=== PATIENT | female | born 1955 | race Asian ===

== ENCOUNTER 2020-09-25 08:35 | Inpatient (IN) | payer OTHER | END 2020-09-30 15:28 | disposition still patient (30) | LOC: PAVC 08:35 | PROVIDERS: ADMIT Internal Medicine; ATTEND Internal Medicine ==

== ENCOUNTER 2020-09-26 07:35 | Outpatient (CLI) | payer OTHER ==
[2020-09-26 08:06] LABS: PLATELET COUNT 304 K/uL (152-353)
[2020-09-26 08:30] LABS: POTASSIUM 3.8 mmol/L (3.6-5.2)
== END 2020-09-26 22:41 | disposition home or self-care (01) ==
LOC: LAB 07:35
PROVIDERS: ATTEND Internal Medicine
DX: N18.9 Chronic kidney disease, unspecified (principal); E03.8 Other specified hypothyroidism; E11.9 Type 2 diabetes mellitus without complications
CPT/HCPCS: 80053; 80061; 82306; 82728; 83036; 83540; 84443; 85027; 87081

== ENCOUNTER 2020-09-30 15:30 | Inpatient (IN) | payer OTHER | END 2020-10-30 08:00 | disposition still patient (30) | LOC: PAVC 15:30 → PAVA 10-13 15:07 | PROVIDERS: ADMIT Internal Medicine; ATTEND Internal Medicine ==

== ENCOUNTER 2020-10-30 09:02 | Inpatient (IN) | payer OTHER | END 2020-11-30 08:00 | disposition still patient (30) | LOC: PAVA 09:02 | PROVIDERS: ADMIT Internal Medicine; ATTEND Internal Medicine ==

== ENCOUNTER 2020-11-30 09:00 | Inpatient (IN) | payer OTHER | END 2020-12-31 09:06 | disposition still patient (30) | LOC: PAVA 09:00 | PROVIDERS: ADMIT Internal Medicine; ATTEND Internal Medicine ==

== ENCOUNTER 2020-12-31 08:38 | Outpatient (CLI) | payer OTHER | END 2020-12-31 23:00 | disposition home or self-care (01) | LOC: LAB 08:38 | PROVIDERS: ATTEND Internal Medicine | DX: E11.9 Type 2 diabetes mellitus without complications (principal) | CPT/HCPCS: 82728; 83036 ==

== ENCOUNTER 2020-12-31 09:11 | Inpatient (IN) | payer OTHER | END 2021-01-30 08:09 | disposition still patient (30) | LOC: PAVA 09:11 | PROVIDERS: ADMIT Internal Medicine; ATTEND Internal Medicine ==

== ENCOUNTER 2021-02-11 18:38 | Observation (INO) | payer OTHER ==
[~2021-02-11] VITALS: Ht 177.8 cm; Wt 121.6 kg
[2021-02-11] VITALS (10 sets, daily range): BP systolic 106–196; BP diastolic 55–92; TEMP 98.1–99.1; Ht 177.8 cm; Wt 121.6 kg
[2021-02-11 19:33] LABS: PLATELET COUNT 407 K/uL (152-353)
[2021-02-11 19:43] LABS: POTASSIUM 4.6 mmol/L (3.6-5.2); SODIUM 138 mmol/L (136-145)
[2021-02-12] MEDS ORDERED: ALLOPURINOL PO (01:38)
[2021-02-12] MEDS ORDERED: ANORO ELLIPTA 61 AER PO (01:47)
[2021-02-12] MEDS ORDERED: [UNRECOGNIZED DRUG - OTHER] PO (01:53)
[2021-02-12] MEDS ORDERED: LIPITOR20 MG PO (01:56)
[2021-02-12 02:12] LABS: PLATELET COUNT 325 K/uL (152-353)
[2021-02-12 02:21] LABS: POTASSIUM 4.6 mmol/L (3.6-5.2)
[2021-02-12] MEDS ORDERED: DOCU100C10 PO (02:37)
[2021-02-12] MEDS ORDERED: METF100038 PO (02:38)
[2021-02-12] MEDS ORDERED: IRON HIGH-POTE325 MG PO (02:39)
[2021-02-12] MEDS ORDERED: MELOXICAM7.5 MG PO (02:41)
[2021-02-12] MEDS ORDERED: HYDRALAZINE25 MG PO (02:42)
[2021-02-12] MEDS ORDERED: LAXATIVE RE (02:45)
[2021-02-12 04:00] VITALS: BP 166/65; TEMP 99
[2021-02-12 08:00] VITALS: BP 144/69; TEMP 99.3
[2021-02-12 12:00] VITALS: BP 154/63; TEMP 99
[2021-02-12 16:00] VITALS: BP 150/48; TEMP 99.2
[2021-02-12 20:00] VITALS: BP 136/77; TEMP 98.6
[2021-02-13 00:05] VITALS: BP 99/66; TEMP 99.4
[2021-02-13 03:37] VITALS: BP 112/70; TEMP 99.4
[2021-02-13 05:37] LABS: PLATELET COUNT 332 K/uL (152-353)
[2021-02-13 05:49] LABS: POTASSIUM 4.1 mmol/L (3.6-5.2)
[2021-02-13 08:00] VITALS: BP 135/63; TEMP 98.4
[2021-02-13] MEDS ORDERED: LEVOFLOXACIN500 MG PO (10:55)
== END 2021-02-13 14:20 ==
LOC: ED 18:38 → MED/SURG 22:00
PROVIDERS: Emergency Medicine Emergency Medical Services; ADMIT Internal Medicine; ATTEND Internal Medicine
DX: R07.89 Other chest pain (principal); E11.9 Type 2 diabetes mellitus without complications; N39.0 Urinary tract infection, site not specified; M10.9 Gout, unspecified; I25.10 Atherosclerotic heart disease of native coronary artery without angina pectoris; D50.8 Other iron deficiency anemias; J44.9 Chronic obstructive pulmonary disease, unspecified; I11.0 Hypertensive heart disease with heart failure; I50.9 Heart failure, unspecified; E78.49 Other hyperlipidemia; Z86.73 Personal history of transient ischemic attack (TIA), and cerebral infarction without residual deficits
CPT/HCPCS: 36415; 51702; 80048; 80053; 81000; 83880; 84484; 85027; 85610; 87040; 87077; 87086; 87088; 87186; 87635; 93005; 96365; 96367; 96372; 99220; 99284; G0378; J0696; J1650; J1940; U0003

== ENCOUNTER 2021-04-01 08:44 | Inpatient (IN) | payer OTHER ==
[~2021-04-01 08:44] MED LIST: ALLOPURINOL PO; ANORO ELLIPTA 61 AER PO; DOCU100C10 PO; HYDRALAZINE25 MG PO; IRON HIGH-POTE325 MG PO; LAXATIVE RE; LEVOFLOXACIN500 MG PO; LIPITOR20 MG PO; MELOXICAM7.5 MG PO; METF100038 PO; [UNRECOGNIZED DRUG - OTHER] PO
== END 2021-05-02 07:54 | disposition still patient (30) ==
LOC: PAVA 08:44
PROVIDERS: ADMIT Internal Medicine; ATTEND Internal Medicine

== ENCOUNTER 2021-04-02 04:57 | Outpatient (CLI) | payer OTHER | END 2021-04-02 18:55 | disposition home or self-care (01) | LOC: LAB 04:57 | PROVIDERS: ATTEND Internal Medicine | DX: E11.9 Type 2 diabetes mellitus without complications (principal); E03.8 Other specified hypothyroidism | CPT/HCPCS: 36415; 83036; 84443 ==

== ENCOUNTER 2021-05-02 07:59 | Inpatient (IN) | payer OTHER | END 2021-06-02 08:39 | disposition still patient (30) | LOC: PAVA 07:59 | PROVIDERS: ADMIT Internal Medicine; ATTEND Internal Medicine ==

== ENCOUNTER 2021-06-02 08:55 | Inpatient (IN) | payer OTHER | END 2021-06-30 08:51 | disposition still patient (30) | LOC: PAVA 08:55 | PROVIDERS: ADMIT Internal Medicine; ATTEND Internal Medicine ==

== ENCOUNTER 2021-06-30 09:32 | Inpatient (IN) | payer OTHER | END 2021-07-31 08:08 | disposition still patient (30) | LOC: PAVA 09:32 | PROVIDERS: ADMIT Internal Medicine; ATTEND Internal Medicine ==

== ENCOUNTER 2021-07-01 07:26 | Outpatient (CLI) | payer OTHER | END 2021-07-01 19:21 | disposition home or self-care (01) | LOC: LAB 07:26 | PROVIDERS: ATTEND Internal Medicine | DX: E11.9 Type 2 diabetes mellitus without complications (principal) | CPT/HCPCS: 36415; 83036 ==

== ENCOUNTER 2021-07-31 08:21 | Inpatient (IN) | payer OTHER ==
[~2021-07-31 08:21] MED LIST changes: +ASPIRIN/ENTERIC81 MG PO; -[UNRECOGNIZED DRUG - OTHER] PO
[2021-08-25] MEDS ORDERED: ANORO ELLIPTA 61 AER IN (03:46)
[2021-08-25] MEDS ORDERED: LIPITOR20 MG PO (03:53)
[2021-08-25] MEDS ORDERED: AMLODIPINE BESYLATE PO (03:53)
[2021-08-25] MEDS ORDERED: EUTHYROX175 MCG PO (03:55)
[2021-08-25] MEDS ORDERED: TYLENOL325 MG PO (04:13)
[2021-08-25] MEDS ORDERED: VITAMIN D1000 UNI1 PO (04:14)
[2021-08-25] MEDS ORDERED: ALLERCLEAR10 MG PO (04:15)
== END 2021-08-30 10:47 | disposition still patient (30) ==
LOC: PAVA 08:21
PROVIDERS: ADMIT Internal Medicine; ATTEND Internal Medicine

== ENCOUNTER 2021-08-30 03:17 | Inpatient (IN) | payer OTHER ==
[~2021-08-30 03:17] MED LIST changes: +ALLERCLEAR10 MG PO; +AMLODIPINE BESYLATE PO; +ANORO ELLIPTA 61 AER IN; +EUTHYROX175 MCG PO; +TYLENOL325 MG PO; +VITAMIN D1000 UNI1 PO
== END 2021-09-30 09:22 | disposition still patient (30) ==
LOC: PAVA 03:17
PROVIDERS: ADMIT Internal Medicine; ATTEND Internal Medicine

== ENCOUNTER 2021-09-10 14:38 | Outpatient (CLI) | payer OTHER | END 2021-09-10 19:05 | disposition home or self-care (01) | LOC: RAD 14:38 | PROVIDERS: ATTEND Internal Medicine | DX: M25.512 Pain in left shoulder (principal) ==

== ENCOUNTER 2021-09-30 07:34 | Outpatient (CLI) | payer OTHER ==
[2021-09-30 08:18] LABS: PLATELET COUNT 302 K/uL (152-353)
[2021-09-30 08:34] LABS: POTASSIUM 4.3 mmol/L (3.6-5.2)
== END 2021-09-30 19:07 | disposition home or self-care (01) ==
LOC: LAB 07:34
PROVIDERS: ATTEND Internal Medicine
DX: E03.8 Other specified hypothyroidism (principal); I50.32 Chronic diastolic (congestive) heart failure; E11.9 Type 2 diabetes mellitus without complications; I11.0 Hypertensive heart disease with heart failure
CPT/HCPCS: 80053; 80061; 83036; 84443; 85027

== ENCOUNTER 2021-09-30 10:44 | Inpatient (IN) | payer OTHER | END 2021-10-30 09:13 | disposition still patient (30) | LOC: PAVA 10:44 → PAVC 10-02 15:40 | PROVIDERS: ADMIT Internal Medicine; ATTEND Internal Medicine ==

== ENCOUNTER 2021-10-01 16:31 | Outpatient (CLI) | payer OTHER | END 2021-10-01 19:01 | disposition home or self-care (01) | LOC: LAB 16:31 | PROVIDERS: ATTEND Internal Medicine | DX: R79.89 Other specified abnormal findings of blood chemistry (principal) | CPT/HCPCS: 82728; 83540 ==

== ENCOUNTER 2021-10-06 13:16 | Outpatient (CLI) | payer OTHER | END 2021-10-06 18:53 | disposition home or self-care (01) | LOC: MAMMO 13:16 | PROVIDERS: ATTEND Internal Medicine | DX: Z12.31 Encounter for screening mammogram for malignant neoplasm of breast (principal) ==

== ENCOUNTER 2021-10-30 12:39 | Inpatient (IN) | payer OTHER | END 2021-11-30 09:08 | disposition still patient (30) | LOC: PAVC 12:39 | PROVIDERS: ADMIT Internal Medicine; ATTEND Internal Medicine ==

== ENCOUNTER 2021-11-30 09:46 | Inpatient (IN) | payer OTHER | END 2021-12-31 09:11 | disposition still patient (30) | LOC: PAVC 09:46 | PROVIDERS: ADMIT Internal Medicine; ATTEND Internal Medicine ==

== ENCOUNTER 2021-12-31 08:48 | Outpatient (CLI) | payer OTHER | END 2021-12-31 19:27 | disposition home or self-care (01) | LOC: LAB 08:48 | PROVIDERS: ATTEND Family Medicine | DX: E11.9 Type 2 diabetes mellitus without complications (principal) | CPT/HCPCS: 83036 ==

== ENCOUNTER 2021-12-31 14:30 | Inpatient (IN) | payer OTHER | END 2022-01-30 10:35 | disposition still patient (30) | LOC: PAVC 14:30 | PROVIDERS: ADMIT Family Medicine; ATTEND Family Medicine ==

== ENCOUNTER 2022-01-30 13:46 | Inpatient (IN) | payer OTHER | END 2022-03-02 12:11 | disposition still patient (30) | LOC: PAVC 13:46 | PROVIDERS: ADMIT Family Medicine; ATTEND Family Medicine ==

== ENCOUNTER 2022-02-10 14:23 | Outpatient (CLI) | payer OTHER ==
[2022-02-10 15:26] LABS: PLATELET COUNT 372 K/uL (152-353)
== END 2022-02-10 19:35 | disposition home or self-care (01) ==
LOC: LAB 14:23
PROVIDERS: ATTEND Family Medicine
DX: R09.89 Other specified symptoms and signs involving the circulatory and respiratory systems (principal); R05.9 Cough, unspecified
CPT/HCPCS: 85027; 87502

== ENCOUNTER 2022-03-02 12:31 | Inpatient (IN) | payer OTHER | END 2022-04-01 15:17 | disposition still patient (30) | LOC: PAVC 12:31 | PROVIDERS: ADMIT Family Medicine; ATTEND Family Medicine ==

== ENCOUNTER → 2022-03-02 | Outpatient (CLI) | payer OTHER | LOC: LAB 07:20 | PROVIDERS: ATTEND Family Medicine | DX: E03.8 Other specified hypothyroidism (principal) | CPT/HCPCS: 84443; 84480 ==

== ENCOUNTER 2022-04-01 08:01 | Outpatient (CLI) | payer OTHER ==
[2022-04-01 09:20] LABS: PLATELET COUNT 343 K/uL (152-353)
[2022-04-01 09:42] LABS: POTASSIUM 4.7 mmol/L (3.6-5.2)
== END 2022-04-01 18:59 | disposition home or self-care (01) ==
LOC: LAB 08:01
PROVIDERS: ATTEND Family Medicine
DX: E11.9 Type 2 diabetes mellitus without complications (principal); I10 Essential (primary) hypertension; E03.8 Other specified hypothyroidism
CPT/HCPCS: 80053; 83036; 84443; 85027

== ENCOUNTER 2022-04-01 15:46 | Inpatient (IN) | payer OTHER | END 2022-05-02 10:48 | disposition still patient (30) | LOC: PAVC 15:46 | PROVIDERS: ADMIT Family Medicine; ATTEND Family Medicine ==

== ENCOUNTER 2022-05-02 13:53 | Inpatient (IN) | payer OTHER | END 2022-06-02 09:25 | disposition still patient (30) | LOC: PAVC 13:53 | PROVIDERS: ADMIT Family Medicine; ATTEND Family Medicine ==

== ENCOUNTER 2022-05-10 07:42 | Outpatient (CLI) | payer OTHER | END 2022-05-10 21:35 | disposition home or self-care (01) | LOC: LAB 07:42 | PROVIDERS: ATTEND Family Medicine | DX: E03.8 Other specified hypothyroidism (principal) | CPT/HCPCS: 36415; 84443 ==

== ENCOUNTER 2022-06-02 12:00 | Inpatient (IN) | payer OTHER | END 2022-06-30 15:10 | disposition still patient (30) | LOC: PAVC 12:00 | PROVIDERS: ADMIT Family Medicine; ATTEND Family Medicine ==

== ENCOUNTER 2022-06-30 07:35 | Outpatient (CLI) | payer OTHER | END 2022-06-30 19:10 | disposition home or self-care (01) | LOC: LAB 07:35 | PROVIDERS: ATTEND Family Medicine | DX: E11.9 Type 2 diabetes mellitus without complications (principal) | CPT/HCPCS: 83036 ==

== ENCOUNTER 2022-06-30 15:50 | Inpatient (IN) | payer OTHER | END 2022-07-31 12:49 | disposition still patient (30) | LOC: PAVC 15:50 | PROVIDERS: ADMIT Family Medicine; ATTEND Family Medicine ==

== ENCOUNTER 2022-07-31 13:03 | Inpatient (IN) | payer OTHER | END 2022-08-30 16:40 | disposition still patient (30) | LOC: PAVC 13:03 | PROVIDERS: ADMIT Family Medicine; ATTEND Family Medicine ==

== ENCOUNTER 2022-08-30 17:15 | Inpatient (IN) | payer OTHER | END 2022-09-30 11:56 | disposition still patient (30) | LOC: PAVC 17:15 | PROVIDERS: ADMIT Family Medicine; ATTEND Family Medicine ==

== ENCOUNTER 2022-09-30 12:08 | Inpatient (IN) | payer OTHER | END 2022-10-30 17:40 | disposition still patient (30) | LOC: PAVC 12:08 | PROVIDERS: ADMIT Family Medicine; ATTEND Family Medicine ==

== ENCOUNTER 2022-10-05 07:38 | Outpatient (CLI) | payer OTHER ==
[2022-10-05 08:20] LABS: PLATELET COUNT 352 K/uL (152-353)
[2022-10-05 08:35] LABS: POTASSIUM 4.9 mmol/L (3.6-5.2)
== END 2022-10-05 18:53 | disposition home or self-care (01) ==
LOC: LABW 07:38
PROVIDERS: ATTEND Family Medicine
DX: E11.9 Type 2 diabetes mellitus without complications (principal); I10 Essential (primary) hypertension
CPT/HCPCS: 36415; 80053; 80061; 83036; 84443; 85027

== ENCOUNTER 2022-10-08 12:47 | Outpatient (CLI) | payer OTHER | END 2022-10-08 19:25 | disposition home or self-care (01) | LOC: MAMMO 12:47 | PROVIDERS: ATTEND Family Medicine | DX: Z12.31 Encounter for screening mammogram for malignant neoplasm of breast (principal); N95.8 Other specified menopausal and perimenopausal disorders ==

== ENCOUNTER 2023-01-04 07:58 | Outpatient (CLI) | payer OTHER | END 2023-01-04 22:00 | disposition home or self-care (01) | LOC: LAB 07:58 | PROVIDERS: ATTEND Family Medicine | DX: E11.9 Type 2 diabetes mellitus without complications (principal) | CPT/HCPCS: 83036 ==